=== PATIENT | male | born 2000 | race Caucasian/White ===

== ENCOUNTER 2019-03-19 08:01 | Emergency (ER) | payer OTHER ==
[~2019-03-19] VITALS: Ht 170.2 cm; Wt 71.4 kg
[2019-03-19] MEDS ORDERED: NS 1,000 ML IV ONE (08:15)
[2019-03-19 09:06] LABS: BASO # 0.1 10^3/uL (0.0-0.2); BASO % 0.5 % (0.0-1.0); EOS # 0.1 10^3/uL (0.0-0.50); EOS % 1.3 % (0.0-3.0); HEMATOCRIT 46.3 % (42.0-52.0); HEMOGLOBIN 15.6 g/dl (13.5-17.5); LYMPH # 2.1 10^3/uL (1.5-6.5); LYMPH % 23.4 % (24.0-44.0); MEAN CORPUSCULAR HEMOGLOBIN 29.4 pg (27.0-33.0); MEAN CORPUSCULAR HGB CONC 33.7 g/dl (32.0-36.5); MEAN CORPUSCULAR VOLUME 87.4 fl (80.0-96.0); MONO # 0.8 10^3/uL (0.0-0.8); MONO % 8.7 % (0.0-5.0); NEUTROPHILS % 65.9 % (36.0-66.0); PLATELET COUNT, AUTOMATED 305 10^3/uL (150-450); WHITE BLOOD COUNT 9.2 10^3/uL (4.0-10.0)
[2019-03-19 09:32] LABS: BLOOD UREA NITROGEN 17 MG/DL (7-18); CALCIUM LEVEL 9.5 MG/DL (8.5-10.1); CARBON DIOXIDE LEVEL 29 MEQ/L (21-32); CHLORIDE LEVEL 104 MEQ/L (98-107); CREATININE FOR GFR 1.13 MG/DL (0.70-1.30); FREE T4 1.18 NG/DL (0.78-1.33); GLUCOSE, FASTING 87 MG/DL (70-100); POTASSIUM SERUM 4.6 MEQ/L (3.5-5.1); SODIUM LEVEL 141 MEQ/L (136-145)
[2019-03-19 09:45] VITALS: BP 104/58
--- NOTE | 2019-03-19 20:33 | ECGEPIP ---
[facility] - ED Test Date: 2019-03-19 Pat Name: JORDAN VELAZQUEZ Department: Room: - Gender: Male Women Nurse: ALIYAH : 2000 Requested By: Ruth Gómez Order Number: [id number] Reading MD: Jono Keating Measurements Intervals [place] Rate: 47 P: 28 W[place]: 152 QRS: 57 QRSD: 101 T: 17 QT: 440 QTc: 390 Interpretive Statements SINUS BRADYCARDIA INCOMPLETE RIGHT BUNDLE BRANCH BLOCK BENIGN EARLY REPOLARIZATION NO PRIORS FOR COMPARISON Electronically Signed on 03-19-2019 20:33:03 EDT by Jono Keating
--- NOTE | 2019-03-20 11:41 | REP ---
PA and lateral chest: There are no comparisons. The lung braxton are clear. The cardiac size is normal. The graham, mediastinum, and skeletal structures are unremarkable. Impression: Negative PA and lateral chest. Electronically Signed by Los Kiran MD 03/19/2019 08:40 A
== END 2019-03-19 09:45 | disposition home or self-care (01) ==
LOC: EDBD 08:01 → M ED 08:01
DX: R55 Syncope and collapse (principal); I45.10 Unspecified right bundle-branch block; R94.31 Abnormal electrocardiogram [ECG] [EKG]; E78.70 Disorder of bile acid and cholesterol metabolism, unspecified; F17.290 Nicotine dependence, other tobacco product, uncomplicated